=== PATIENT | male | born 1960 | race Caucasian/White ===

== ENCOUNTER 2018-08-03 06:23 | Inpatient (IN) | payer BC, OTHER ==
[2018-08-03] VITALS (27 sets, daily range): BP systolic 125–165; BP diastolic 61–113; PULSE 52–96; RESP 10–24; Ht 175.3 cm; Wt 90.0 kg
[~2018-08-03] VITALS: Ht 175.3 cm; Wt 90.0 kg
[~2018-08-03 06:23] MED LIST: CEFAZOLIN 2 GM/50 ML (PMX) 50 ML IVPB SCH; SOD CHLORIDE 0.9% 1,000 ML IV ONE
[2018-08-03] MEDS ORDERED: EMTR1TAB17 PO (07:48)
--- NOTE | 2018-08-03 08:39 | PREAC ---
Date/Time of Note Date/Time of Note DATE: 08/03/18 TIME: 08:37 Anesthesia Eval and Record Evaluation Time Pre-Procedure Interview DATE: 08/03/18 TIME: 08:37 Age 58 Sex male NPO: 8 hrs Preoperative diagnosis ventral hernia Planned procedure open component seperation with mesh and ventral hernia repair Past Medical History Past Medical History: Includes Infection(s): HIV Surgery & Anesthesia Issues No known issue Meds Anticoagulation: No Beta Monica within 24 hr: No Reason Beta Monica not given: Pt. not on B-Monica Reported Medications Emtricitab/Rilpiviri/Tenof Ala (Odefsey Tablet) 1 Each Tablet, 1 EACH PO, TAB 08/03/18 Current Medications Cefazolin Sodium/ Dextrose 50 ml @ 100 mls/hr PRE-OP IVPB ; Start 08/03/18 at 06:00; Stop 08/03/18 at 15:00 Sodium Chloride 1,000 ml @ 75 mls/hr [id number] ONCE IV ; Start 08/03/18 at 06:00; Stop 08/03/18 at 19:19 Meds reviewed: Yes Allergies Coded Allergies: No Known Allergy (Unverified , 08/03/18) Allergies Reviewed: Yes Labs/Studies Labs Reviewed: Reviewed by anesthesiologist test: N/A Studies: ECG (sr), CXR (nl) Pre-procedure Exam Last vitals Vital Signs Date Temp Pulse Resp B/P (MAP) Pulse Ox O2 O2 Flow FiO2 Time Delivery Rate 08/03/18 97.7 72 16 137/91 97 06:50 (106) Airway: Adequate mouth opening Mallampati: Mallampati II Teeth: Normal Lung: Normal Heart: Normal ASA Physical Status ASA physical status: 2 Emergency: None Planned Anesthetic General/MAC: ETT Nerve block: TAP (bilateral) Planned Pain Management Single shot nerve block, Parenteral pain med Pre-operative Attestations Prior to commencing anesthesia and surgery, the patient was re-evaluated, there was verification of: *The patient's identity *The results of appropriate recent lab work and preoperative vital signs *The above evaluation not changing prior to induction *Anesthetic plan, risk benefits, alternative and complications discussed with patient/family; questions answered; patient/family understands, accepts and wishes to proceed. AMBROSE BERGMAN MD Aug 03, 2018 08:39
[2018-08-03] MEDS ORDERED: POLYMYXIN/BACITRACIN 1L IRRIG ONE (08:40)
[2018-08-03] MEDS ORDERED: MIDAZOLAM 1 MG/ML 2 ML INJ ONE (08:42)
[2018-08-03] MEDS ORDERED: METOCLOPRAMIDE 10 MG INJ ONE (08:42)
[2018-08-03] MEDS ORDERED: ROPIVACAINE 0.5 % 30 ML VIAL ONE (08:42)
[2018-08-03] MEDS ORDERED: ONDANSETRON 4 MG INJ ONE (08:42)
[2018-08-03] MEDS ORDERED: CEFAZOLIN 1 GM INJ ONE (08:42)
[2018-08-03] MEDS ORDERED: PROPOFOL 0 ML ONE (08:42)
[2018-08-03] MEDS ORDERED: DIPHENHYDRAMINE 50 MG INJ IV PRN (09:00)
[2018-08-03] MEDS ORDERED: ONDANSETRON 4 MG INJ IV PRN ×2 (09:00→13:00)
[2018-08-03] MEDS ORDERED: OXYCODONE/ACETAMINOPHEN (5/325) TAB PO PRN ×2 (09:00)
[2018-08-03] MEDS ORDERED: HYDROmorphONE 1 MG/5 ML IV SYRINGE IV PRN ×3 (09:00)
[2018-08-03] MEDS ORDERED: MEPERIDINE 25 MG INJ IV PRN (09:00)
[2018-08-03] MEDS ORDERED: PROPOFOL 20 ML ONE ×2 (09:12→09:39)
[2018-08-03] MEDS ORDERED: NEOSTIGMINE 10 MG INJ ONE (09:13)
[2018-08-03] MEDS ORDERED: KETOROLAC 30 MG INJ ONE (09:13)
[2018-08-03] MEDS ORDERED: GLYCOPYRROLATE 0.4 MG INJ ONE (09:13)
[2018-08-03] MEDS ORDERED: HYDROmorphONE 2 MG/ML SYG ONE (09:15)
[2018-08-03] MEDS ORDERED: ROCURONIUM 50 MG INJ ONE (09:40)
[2018-08-03] MEDS ORDERED: BUPIVACAINE 0.25% (MPF) 30 ML INJ ONE (10:04)
[2018-08-03] MEDS ORDERED: METOPROLOL 5 MG INJ ONE (10:09)
[2018-08-03] MEDS ORDERED: SUGAMMADEX SODIUM 200 MG/2 ML VIAL IV ONE (10:18)
--- NOTE | 2018-08-03 10:40 | OPR ---
Date/Time of Note Date/Time of Note DATE: 08/03/18 TIME: 10:25 Operative Report Procedure Date: Aug 03, 2018 Preoperative Diagnosis incarcerated ventral hernia umbilical hernia and abdominal wall defect Postoperative Diagnosis same Operation/Procedure Performed 1. right rectus musculocutaneous flap cpt code 66028 2. left rectus musculocutaneous flap cpt code 87897 3. incarcerated midepigastric ventral hernia repair cpt code 40646 4. implantation of abdominal mesh 15 x 30 bard soft mesh cpt code 35112 5. incarcerated umbilical hernia repair cpt code 74117 6. localized adjacent tissue transfer with the use of skin flaps 78 sq cm defect of the trunk 7. open lysis of adhesions 1 hour 8. therapeutic injection of subcutaneous local anesthesia Surgeon see signature line Audiovisual Tech Sebastian Espinoza Anesthesia Type: general Estimated Blood Loss: 10 - 50 ml's Transfusion none Specimen none Grafts/Implants none Complications none Pt Condition Post Procedure: stable Indications This is a 58-year-old male with a very large abdominal wall defect and a complex ventral hernia umbilical hernia. He also has HIV. Risks alternatives benefits and percent were discussed with the patient. In particular due to his HIV and the complex nature of his abdominal wall reconstruction he was warned regarding increased risks of infection bleeding healing and potential complications in the future. Patient expressed understanding and requested the operation. Procedure Description Patient is taken to the OR and prepped and draped in usual sterile fashion. Surgical time was performed. IV antibiotics given. Generous midline incision was performed from the subxiphoid area all the way down to the periumbilical and infraumbilical region. Dissection with cautery was carried down to the decussation of the rectus sheath fascia. Here in the midepigastric region there were 2 incarcerated hernias that were encountered. This hernia defect was identified and the tissue was then manually reduced. This division of the rectus muscle was taken down all the way to the subxiphoid region all the way down to the periumbilical and infraumbilical region. There was laxity in this tissue and separation of the majority of the rectus sheath. Additionally an umbilical hernia was encountered. This was also opened and the hernia contents were reduced. The left rectus musculocutaneous flap was then developed. The retrorectus space was then developed by making a small incision into the rectus sheath. The posterior rectus sheath was then divided from the anterior rectus sheath with cautery taking care to preserve the vasculature to the rectus muscle. Extensive lysis of adhesions was performed taking all the adhesions from the anterior abdominal wall at the hernia point. The tissues were mobilized off of the posterior rectus sheath. This was taken all the way superiorly and inferiorly all the way down to the periumbilical infraumbilical region. After this space was developed and hemostasis was established the right rectus muscle flap was then developed. The retrorectus space was then developed by making a small incision into the rectus sheath. This was then carried superiorly inferiorly dividing the anterior posterior rectus sheath. The posterior rectus sheath was then closed and imbricated fashion with #1 loop PDS running from superior at the subxiphoid region down to the mid epigastric region. Another #1 loop PDS was taken from the infra umbilical region and taken down to the same midpoint region closing the posterior rectus sheath and tightening the area. Due to the large defect the mid epigastric hernia and umbilical hernia was then repaired by placing a synthetic mesh in the retrorectus space. Due to the size of the defect to Bard soft 15 x 15 cm mesh is more juxtaposed with multiple interrupted #1 Prolenes along the mesh greater coverage. This was secured in place by secure strap along the anterior aspect of the abdominal wall. The underlay mesh in the retrorectus space was secured with secure strap to the rectus muscle on both sides on the right and left. At the apex of the incision and the low point of the incision on #1 Prolene was used to secure reinforce the Bard soft mesh. After the underlay Bard soft mesh was secured in the retrorectus space hemostasis was verified. Good hemostasis was established. Anterior rectus sheath was then reapproximated with a #1 loop PDS from superior at the subxiphoid region all the way down to the mid epi gastric region. The anterior rectus sheath was also closed from the inferior aspect of the midline incision to the mid epigastric region and a running fashion with a #1 loop PDS. These 2 PDS were tied down. Due to large tissue defect localized adjacent to his transfer with these of skin flaps was performed. Multilayer closure with the skin flaps was performed. The skin flap was then reapproximated using interrupted skin evonne. Therapeutic subcutaneous local anesthesia was injected at the incision site. Dry dressings were applied. Gibson BRANTLEY Aug 03, 2018 10:40
[2018-08-03] MEDS ORDERED: FENTAnyl 50 MCG/ML VIAL IV PRN ×2 (11:00)
[2018-08-03] MEDS: SOD CHLORIDE 0.9% 1,000 ML IV SCH ×2 (11:28→18:45)
[2018-08-03] MEDS ORDERED: hydrALAzine 20 MG INJ IV PRN (11:30)
--- NOTE | 2018-08-03 11:57 | PAC ---
Date/Time of Note Date/Time of Note DATE: 08/03/18 TIME: 11:57 Post-Anesthesia Notes Post-Anesthesia Note Last documented vital signs Vital Signs Date Temp Pulse Resp B/P (MAP) Pulse Ox O2 O2 Flow FiO2 Time Delivery Rate 08/03/18 98.7 56 14 162/90 97 Nasal 10:55 (114) Cannula 08/03/18 2.0 10:51 08/03/18 98.4 10:27 Activity: WNL Respiratory function: WNL Cardiovascular function: WNL Mental status: Baseline Pain reasonably controlled: Yes Hydration appropriate: Yes Nausea/Vomiting absent: No AMBROSE BERGMAN MD Aug 03, 2018 11:57
--- NOTE | 2018-08-03 12:38 | HP ---
Date/Time of Note Date/Time of Note DATE: 08/03/18 TIME: 12:18 Assessment/Plan VTE Prophylaxis SCD applied (from Nsg): Yes Pharmacological prophylaxis: NA/contraindicated Pharm contraindication: surgical contra Lines/Catheters IV Catheter Type (from Nrsg): Peripheral IV Urinary Cath still in place: No Assessment/Plan Assessment/Plan -Incarcerated ventral hernia umbilical hernia and abdominal wall defect, status post open repair by Dr. Garcia on 08/03/2018. Continue IV fluids and postoperative antibiotic. Continue morphine for pain and Zofran as needed for nausea. -HIV, per patient his viral load is undetectable, patient takes Odefsey. Further recommendations based on clinical course. Plan of care discussed with Dr. Velasquez. Result Diagram: 08/03/18 1126 08/03/18 1126 Results 24hrs Laboratory Tests Test 08/03/18 11:26 White Blood Count 7.6 Red Blood Count 4.66 L Hemoglobin 14.9 Hematocrit 43.3 Mean Corpuscular Volume 92.9 Mean Corpuscular Hemoglobin 32.0 Mean Corpuscular Hemoglobin Concent 34.4 Red Cell Distribution Width 12.2 Platelet Count 126 L Mean Platelet Volume 10.2 Immature Granulocytes % 0.700 H Neutrophils % 73.8 Lymphocytes % 16.1 Monocytes % 8.3 Eosinophils % 0.7 Basophils % 0.4 Nucleated Red Blood Cells % 0.0 Immature Granulocytes # 0.050 H Neutrophils # 5.6 Lymphocytes # 1.2 Monocytes # 0.6 Eosinophils # 0.1 Basophils # 0.0 Nucleated Red Blood Cells # 0.0 Sodium Level 145 H Potassium Level 4.8 Chloride Level 108 Carbon Dioxide Level 25 Anion Gap 12 Blood Urea Nitrogen 18 Creatinine 0.89 Est Glomerular Filtrat Rate mL/min > 60 Glucose Level 114 Calcium Level 9.0 Total Bilirubin 0.6 Direct Bilirubin 0.00 Indirect Bilirubin 0.6 Aspartate Amino Transf (AST/SGOT) 25 Alanine Aminotransferase (ALT/SGPT) 34 Alkaline Phosphatase 65 Total Protein 7.0 Albumin 4.4 Globulin 2.60 Albumin/Globulin Ratio 1.69 HPI/ROS Admit Date/Time Admit Date/Time Aug 03, 2018 at 06:23 Hx of Present Illness The patient is 58-year-old male who was evaluated by Dr. Farah in general surgery consultation for very large abdominal wall defect and complex ventral and umbilical hernias. Patient has HIV takes Odefsey daily patient stated that his viral load is undetectable. Patient requested surgery for his hernia and was brought to the hospital today and underwent open hernia repair by Dr. Farah. Postoperative patient had an episode of high blood pressure, was given hydralazine with improvement in blood pressure. Patient denies any history of hypertension, however, he stated sometimes first reading of his blood pressure could be slightly elevated due to being anxious. Patient's complaints of abdominal pain and patient will be admitted for further evaluation and management. ROS 12 point review of system is negative except for what mentioned in HPI PMH/Family/Social Past Medical History Medical History: other (HIV) Medications Current Medications Cefazolin Sodium/ Dextrose 50 ml @ 100 mls/hr PRE-OP IVPB ; Start 08/03/18 at 06:00; Stop 08/03/18 at 15:00 Sodium Chloride 1,000 ml @ 75 mls/hr [id number] ONCE IV ; Start 08/03/18 at 06:00; Stop 08/03/18 at 19:19 Hydromorphone HCl (Dilaudid) 0.2 mg PACU PRN IV MILD PAIN 1-3; Start 08/03/18 at 09:00; Stop 08/03/18 at 17:00 Hydromorphone HCl (Dilaudid) 0.4 mg PACU PRN IV MOD PAIN 4-6; Start 08/03/18 at 09:00; Stop 08/03/18 at 17:00 Hydromorphone HCl (Dilaudid) 0.6 mg PACU PRN IV SEVERE PAIN 7-10 Last administe red on 08/03/18at 10:43; Admin Dose 0.6 MG; Start 08/03/18 at 09:00; Stop 08/03/18 at 17:00 Oxycodone/ Acetaminophen (Percocet (5/ 325)) 1 tab PACU ORDER PRN PO .PAIN 1-5; Start 08/03/18 at 09:00; Stop 08/03/18 at 17:00 Oxycodone/ Acetaminophen (Percocet (5/ 325)) 2 tab PACU ORDER PRN PO .PAIN 6-10; Start 08/03/18 at 09:00; Stop 08/03/18 at 17:00 Ondansetron HCl (Zofran Inj) 4 mg PACU ORDER PRN IV NAUSEA/VOMITING Last administered on 08/03/18 10:43; Admin Dose 4 MG; Start 08/03/18 at 09:00; Stop 08/03/18 at 17:00 Meperidine HCl (Demerol) 25 mg PACU ORDER PRN IV .RIGORS Last administered on 08/03/18 10:43; Admin Dose 25 MG; Start 08/03/18 at 09:00; Stop 08/03/18 at 17:00 Diphenhydramine HCl (Benadryl) 25 mg PACU ORDER PRN IV .PRURITUS; Start 08/03/18 at 09:00; Stop 08/03/18 at 17:00 Cefazolin Sodium/ Dextrose 50 ml @ 100 mls/hr Q8H IVPB ; Start 08/03/18 at 14:00; Stop 08/04/18 at 13:59 Oxycodone/ Acetaminophen (Percocet (5/ 325)) 1 tab Q6H PRN PO PAIN LEVEL 6-10; Start 08/03/18 at 10:30 Sodium Chloride 1,000 ml @ 100 mls/hr Q10H IV Last administered on 08/03/18 11:28; Admin Dose 100 MLS/HR; Start 08/03/18 at 10:13 Fentanyl (Sublimaze) 25 mcg PACU ORDER PRN IV MILD PAIN 1-3; Start 08/03/18 at 11:00; Stop 08/03/18 at 18:00 Fentanyl (Sublimaze) 50 mcg PACU ORDER PRN IV MOD PAIN 4-6 Last administered on 08/03/18 11:10; Admin Dose 50 MCG; Start 08/03/18 at 11:00; Stop 08/03/18 at 18:00 Hydralazine HCl (Apresoline) 5 mg PACU ORDER PRN IV HIGH BLOOD PRESSURE Last administered on 08/03/18 11:31; Admin Dose 5 MG; Start 08/03/18 at 11:30; Stop 08/03/18 at 18:00 Coded Allergies: No Known Allergy (Unverified , 08/03/18) Past Surgical History Past Surgical Hx: no surgical history Family History Significant Family History: cancer (Patient mother from cancer), diabetes (Patient's father) Social History Alcohol Use: none Smoking Status: Never smoker Drug Use: none Exam/Review of Systems Vital Signs Vitals Vital Signs Date Temp Pulse Resp B/P (MAP) Pulse Ox O2 O2 Flow FiO2 Time Delivery Rate 08/03/18 64 14 149/84 98 Nasal 11:47 (105) Cannula 08/03/18 2.0 10:51 08/03/18 98.4 10:27 Exam Constitutional: alert, oriented Head: normocephalic Neck: supple Respiratory: clear to auscultation Cardiovascular: regular rate and rhythm Gastrointestinal: soft, other (s/p surgery) Musculoskeletal: nl extremities to inspection Extremities: normal pulses Neurological: nl mental status Skin: nl BETTIE Sahu Aug 03, 2018 12:28
[2018-08-03] MEDS ORDERED: morphine 2 MG INJ IV PRN (13:00)
[2018-08-03] MEDS ORDERED: CEFAZOLIN 2 GM/50 ML (PMX) 50 ML IVPB SCH ×2 (14:00→17:00)
[2018-08-03] MEDS ORDERED: NALOXONE (0.4 MG/ML) INJ IV PRN ×2 (15:00)
[2018-08-03] MEDS ORDERED: HYDROmorphONE 0.2 MG/ML PCA IV SCH (15:00)
[2018-08-03] MEDS: HYDROmorphONE 0.2 MG/ML PCA IV SCH (15:32)
[2018-08-03] MEDS ORDERED: VITAMIN A & D 5 GM OINT PACKET TOP ONE (17:10)
[2018-08-03] MEDS: CEFAZOLIN 2 GM in SOD CHLORIDE 0.9% 50 ML IVPB SCH (18:47)
[2018-08-03] MEDS: LEVALBUTEROL (NEB) 0.63 MG/3 ML AMP HHN SCH (22:15)
[2018-08-04] VITALS (10 sets, daily range): BP systolic 151–177; BP diastolic 62–112; PULSE 81–110; RESP 16–20
[2018-08-04] MEDS: CEFAZOLIN 2 GM in SOD CHLORIDE 0.9% 50 ML IVPB SCH ×3 (01:41→18:07)
[2018-08-04] MEDS: HYDROmorphONE 0.2 MG/ML PCA IV SCH ×2 (03:24→16:48)
[2018-08-04] MEDS: SOD CHLORIDE 0.9% 1,000 ML IV SCH ×3 (04:08→20:20)
[2018-08-04] MEDS: hydrALAzine 20 MG INJ IV PRN ×3 (04:17→18:07)
[2018-08-04] MEDS: LEVALBUTEROL (NEB) 0.63 MG/3 ML AMP HHN SCH ×2 (07:38→15:46)
--- NOTE | 2018-08-04 13:05 | PN ---
Date/Time of Note Date/Time of Note DATE: 08/04/18 TIME: 13:04 Assessment/Plan VTE Prophylaxis Risk score (from Nsg)>0 risk: 8 SCD applied (from Nsg): Yes Pharmacological prophylaxis: other Lines/Catheters IV Catheter Type (from Nrsg): Peripheral IV Urinary Cath still in place: No Assessment/Plan Assessment/Plan s/p open component separation with mesh continue care and pain management Result Diagram: 08/04/18 0428 08/04/18 0428 Results 24hrs Laboratory Tests Test 08/04/18 04:28 08/04/18 08:15 White Blood Count 7.4 Red Blood Count 4.36 L Hemoglobin 13.7 L Hematocrit 40.4 L Mean Corpuscular Volume 92.7 Mean Corpuscular Hemoglobin 31.4 Mean Corpuscular Hemoglobin Concent 33.9 Red Cell Distribution Width 12.2 Platelet Count 110 L Mean Platelet Volume 10.7 H Immature Granulocytes % 0.400 Neutrophils % 75.1 Lymphocytes % 13.4 L Monocytes % 10.4 Eosinophils % 0.4 Basophils % 0.3 Nucleated Red Blood Cells % 0.0 Immature Granulocytes # 0.030 Neutrophils # 5.6 Lymphocytes # 1.0 Monocytes # 0.8 Eosinophils # 0.0 Basophils # 0.0 Nucleated Red Blood Cells # 0.0 Sodium Level 141 Potassium Level 4.2 Chloride Level 100 Carbon Dioxide Level 28 Anion Gap 13 Blood Urea Nitrogen 15 Creatinine 0.91 Est Glomerular Filtrat Rate mL/min > 60 Glucose Level 107 Calcium Level 9.0 Total Bilirubin 1.3 Direct Bilirubin 0.00 Indirect Bilirubin 1.3 H Aspartate Amino Transf (AST/SGOT) 29 Alanine Aminotransferase (ALT/SGPT) 27 Alkaline Phosphatase 54 Total Protein 6.7 Albumin 4.2 Globulin 2.50 Albumin/Globulin Ratio 1.68 Lab Scanned Report REFERENCE LAB Subjective 24 Hr Interval Summary Free Text/Dictation expected postop op pain Exam/Review of Systems Exam Vitals Vital Signs Date Temp Pulse Resp B/P (MAP) Pulse Ox O2 O2 Flow FiO2 Time Delivery Rate 08/04/18 101 16 173/103 93 Nasal 10:39 (126) Cannula 08/04/18 2.0 08:15 08/04/18 21 07:38 08/04/18 98.2 07:19 Intake and Output 08/03/18 08/03/18 08/04/18 1515:00 23:00 07:00 IntakeIntake Total 1120 ml 1870 ml 1870 ml OutputOutput Total 2 ml 600 ml 1380 ml BalanceBalance 1118 ml 1270 ml 490 ml Exam c/d/i Results Results 24hrs Laboratory Tests Test 08/04/18 04:28 08/04/18 08:15 White Blood Count 7.4 Red Blood Count 4.36 L Hemoglobin 13.7 L Hematocrit 40.4 L Mean Corpuscular Volume 92.7 Mean Corpuscular Hemoglobin 31.4 Mean Corpuscular Hemoglobin Concent 33.9 Red Cell Distribution Width 12.2 Platelet Count 110 L Mean Platelet Volume 10.7 H Immature Granulocytes % 0.400 Neutrophils % 75.1 Lymphocytes % 13.4 L Monocytes % 10.4 Eosinophils % 0.4 Basophils % 0.3 Nucleated Red Blood Cells % 0.0 Immature Granulocytes # 0.030 Neutrophils # 5.6 Lymphocytes # 1.0 Monocytes # 0.8 Eosinophils # 0.0 Basophils # 0.0 Nucleated Red Blood Cells # 0.0 Sodium Level 141 Potassium Level 4.2 Chloride Level 100 Carbon Dioxide Level 28 Anion Gap 13 Blood Urea Nitrogen 15 Creatinine 0.91 Est Glomerular Filtrat Rate mL/min > 60 Glucose Level 107 Calcium Level 9.0 Total Bilirubin 1.3 Direct Bilirubin 0.00 Indirect Bilirubin 1.3 H Aspartate Amino Transf (AST/SGOT) 29 Alanine Aminotransferase (ALT/SGPT) 27 Alkaline Phosphatase 54 Total Protein 6.7 Albumin 4.2 Globulin 2.50 Albumin/Globulin Ratio 1.68 Lab Scanned Report REFERENCE LAB Medications Medication Current Medications Oxycodone/ Acetaminophen (Percocet (5/ 325)) 1 tab Q6H PRN PO PAIN LEVEL 6-10; Start 08/03/18 at 10:30 Sodium Chloride 1,000 ml @ 100 mls/hr Q10H IV Last administered on 08/04/18at 04:08; Admin Dose 100 MLS/HR; Start 08/03/18 at 10:13 Hydralazine HCl (Apresoline) 10 mg Q4H PRN IV SBP>170 Last administered on 08/04/18at 10:39; Admin Dose 10 MG; Start 08/03/18 at 13:00 Ondansetron HCl (Zofran Inj) 4 mg Q6H PRN IV NAUSEA/VOMITING; Start 08/03/18 at 13:00 Morphine Sulfate (morphine) 2 mg Q4H PRN IV .SEVERE PAIN 7-10 Last administered on 08/03/18 13:23; Admin Dose 2 MG; Start 08/03/18 at 13:00 Docusate Sodium (Colace) 100 mg Q12H PRN PO .CONSTIPATION; Start 08/03/18 at 13:00 Bisacodyl (Dulcolax) 5 mg DAILY PRN PO .CONSTIPATION; Start 08/03/18 at 13:00 Naloxone HCl (Narcan) 0.2 mg PRN PRN IV RR < 8; Start 08/03/18 at 15:00 Hydromorphone HCl (Dilaudid TECHNICAL SUPPORT DIRECTOR) Q4PCA IV Last administered on 08/04/18at 03:24; Admin Dose 6 MG; Start 08/03/18 at 15:00 Levalbuterol (Xopenex Neb) 0.63 mg Q8H RESP THERAPY HHN Last administered on 08/04/18at 07:38; Admin Dose 0.63 MG; Start 08/03/18 at 20:00; Stop 08/06/18 at 08:00 Cefazolin Sodium 2 gm/Sodium Chloride 50 ml @ 100 mls/hr Q8H IVPB Last administered on 08/04/18at 10:32; Admin Dose 100 MLS/HR; Start 08/03/18 at 18:00 Gibson BRANTLEY Aug 04, 2018 13:05
--- NOTE | 2018-08-04 17:21 | PN ---
Date/Time of Note Date/Time of Note DATE: 08/04/18 TIME: 17:17 Assessment/Plan VTE Prophylaxis Risk score (from Ns)>0 risk: 8 SCD applied (from Ns): Yes Pharmacological prophylaxis: NA/contraindicated Pharm contraindication: surgical contra Lines/Catheters IV Catheter Type (from Nrsg): Peripheral IV Urinary Cath still in place: No Assessment/Plan Hospital Course Patient still complains of significant amount of pain, continues on AGENCY SERVICE COORDINATOR Dilaudid, hypertensive, continue hydralazine as needed, started on Norvasc. Assessment/Plan -Incarcerated ventral hernia umbilical hernia and abdominal wall defect, status post open repair by Dr. Farah on 08/03/2018. Continue IV fluids and postoperative antibiotic. Continue morphine for pain and Zofran as needed for nausea. -Hypertension, start Norvasc, continue hydralazine as needed. -HIV, continue Odefsey. Further recommendations based on clinical course. Plan of care discussed with Dr. Velasquez. Result Diagram: 08/04/18 0428 08/04/18 0428 Results 24hrs Laboratory Tests Test 08/04/18 04:28 08/04/18 08:15 White Blood Count 7.4 Red Blood Count 4.36 L Hemoglobin 13.7 L Hematocrit 40.4 L Mean Corpuscular Volume 92.7 Mean Corpuscular Hemoglobin 31.4 Mean Corpuscular Hemoglobin Concent 33.9 Red Cell Distribution Width 12.2 Platelet Count 110 L Mean Platelet Volume 10.7 H Immature Granulocytes % 0.400 Neutrophils % 75.1 Lymphocytes % 13.4 L Monocytes % 10.4 Eosinophils % 0.4 Basophils % 0.3 Nucleated Red Blood Cells % 0.0 Immature Granulocytes # 0.030 Neutrophils # 5.6 Lymphocytes # 1.0 Monocytes # 0.8 Eosinophils # 0.0 Basophils # 0.0 Nucleated Red Blood Cells # 0.0 Sodium Level 141 Potassium Level 4.2 Chloride Level 100 Carbon Dioxide Level 28 Anion Gap 13 Blood Urea Nitrogen 15 Creatinine 0.91 Est Glomerular Filtrat Rate mL/min > 60 Glucose Level 107 Calcium Level 9.0 Total Bilirubin 1.3 Direct Bilirubin 0.00 Indirect Bilirubin 1.3 H Aspartate Amino Transf (AST/SGOT) 29 Alanine Aminotransferase (ALT/SGPT) 27 Alkaline Phosphatase 54 Total Protein 6.7 Albumin 4.2 Globulin 2.50 Albumin/Globulin Ratio 1.68 Lab Scanned Report REFERENCE LAB Exam/Review of Systems Exam Vitals Vital Signs Date Temp Pulse Resp B/P (MAP) Pulse Ox O2 O2 Flow FiO2 Time Delivery Rate 08/04/18 95 20 95 21 15:46 08/04/18 97.2 161/78 14:16 (105) 08/04/18 Nasal 10:39 Cannula 08/04/18 2.0 08:15 Intake and Output 08/03/18 08/03/18 08/04/18 1515:00 23:00 07:00 IntakeIntake Total 1120 ml 1870 ml 1870 ml OutputOutput Total 2 ml 600 ml 1380 ml BalanceBalance 1118 ml 1270 ml 490 ml Exam Constitutional: alert, oriented Respiratory: clear to auscultation Cardiovascular: nl pulse Gastrointestinal: soft, other (s/p surgery) Musculoskeletal: nl extremities to inspection Extremities: normal pulses Neurological: nl mental status Results Results 24hrs Laboratory Tests Test 08/04/18 04:28 08/04/18 08:15 White Blood Count 7.4 Red Blood Count 4.36 L Hemoglobin 13.7 L Hematocrit 40.4 L Mean Corpuscular Volume 92.7 Mean Corpuscular Hemoglobin 31.4 Mean Corpuscular Hemoglobin Concent 33.9 Red Cell Distribution Width 12.2 Platelet Count 110 L Mean Platelet Volume 10.7 H Immature Granulocytes % 0.400 Neutrophils % 75.1 Lymphocytes % 13.4 L Monocytes % 10.4 Eosinophils % 0.4 Basophils % 0.3 Nucleated Red Blood Cells % 0.0 Immature Granulocytes # 0.030 Neutrophils # 5.6 Lymphocytes # 1.0 Monocytes # 0.8 Eosinophils # 0.0 Basophils # 0.0 Nucleated Red Blood Cells # 0.0 Sodium Level 141 Potassium Level 4.2 Chloride Level 100 Carbon Dioxide Level 28 Anion Gap 13 Blood Urea Nitrogen 15 Creatinine 0.91 Est Glomerular Filtrat Rate mL/min > 60 Glucose Level 107 Calcium Level 9.0 Total Bilirubin 1.3 Direct Bilirubin 0.00 Indirect Bilirubin 1.3 H Aspartate Amino Transf (AST/SGOT) 29 Alanine Aminotransferase (ALT/SGPT) 27 Alkaline Phosphatase 54 Total Protein 6.7 Albumin 4.2 Globulin 2.50 Albumin/Globulin Ratio 1.68 Lab Scanned Report REFERENCE LAB Medications Medication Current Medications Oxycodone/ Acetaminophen (Percocet (5/ 325)) 1 tab Q6H PRN PO PAIN LEVEL 6-10; Start 08/03/18 at 10:30 Sodium Chloride 1,000 ml @ 100 mls/hr Q10H IV Last administered on 08/04/18 04:08; Admin Dose 100 MLS/HR; Start 08/03/18 at 10:13 Hydralazine HCl (Apresoline) 10 mg Q4H PRN IV SBP>170 Last administered on 08/04/18 10:39; Admin Dose 10 MG; Start 08/03/18 at 13:00 Ondansetron HCl (Zofran Inj) 4 mg Q6H PRN IV NAUSEA/VOMITING; Start 08/03/18 at 13:00 Morphine Sulfate (morphine) 2 mg Q4H PRN IV .SEVERE PAIN 7-10 Last administered on 08/03/18 13:23; Admin Dose 2 MG; Start 08/03/18 at 13:00 Docusate Sodium (Colace) 100 mg Q12H PRN PO .CONSTIPATION; Start 08/03/18 at 13:00 Bisacodyl (Dulcolax) 5 mg DAILY PRN PO .CONSTIPATION; Start 08/03/18 at 13:00 Naloxone HCl (Narcan) 0.2 mg PRN PRN IV RR < 8; Start 08/03/18 at 15:00 Hydromorphone HCl (Dilaudid AGENCY SERVICE COORDINATOR) Q4PCA IV Last administered on 08/04/18 16:48; Admin Dose 6 MG; Start 08/03/18 at 15:00 Levalbuterol (Xopenex Neb) 0.63 mg Q8H RESP THERAPY HHN Last administered on 08/04/18 15:46; Admin Dose 0.63 MG; Start 08/03/18 at 20:00; Stop 08/06/18 at 08:00 Cefazolin Sodium 2 gm/Sodium Chloride 50 ml @ 100 mls/hr Q8H IVPB Last administered on 08/04/18 10:32; Admin Dose 100 MLS/HR; Start 08/03/18 at 18:00 Patient Own Medication 1 ea DAILY PO ; Start 08/04/18 at 17:30 BETTIE RUVALCABA Aug 04, 2018 17:21
[2018-08-04] MEDS: AMLODIPINE 5 MG TAB PO SCH (18:04)
[2018-08-04] MEDS: RILPIVIRINE PO SCH (18:06)
[2018-08-04] MEDS: TENOFOVIR PO SCH (18:06)
[2018-08-04] MEDS: ODEFSEY PO SCH (18:06)
[2018-08-05] MEDS: LEVALBUTEROL (NEB) 0.63 MG/3 ML AMP HHN SCH ×4 (01:32→23:47)
[2018-08-05 01:53] VITALS: BP 166/83; PULSE 101; RESP 16
[2018-08-05] MEDS: CEFAZOLIN 2 GM in SOD CHLORIDE 0.9% 50 ML IVPB SCH ×3 (02:28→18:05)
[2018-08-05 06:01] VITALS: BP 138/94; PULSE 94; RESP 18
[2018-08-05] MEDS: SOD CHLORIDE 0.9% 1,000 ML IV SCH ×2 (07:22→18:05)
[2018-08-05 08:25] VITALS: BP 158/92; PULSE 94; RESP 18
[2018-08-05] MEDS: DOCUSATE SODIUM 100 MG CAP PO PRN (09:30)
[2018-08-05] MEDS: BISACODYL (EC) 5 MG TAB PO PRN (09:31)
[2018-08-05] MEDS: AMLODIPINE 5 MG TAB PO SCH (09:31)
[2018-08-05] MEDS: TENOFOVIR PO SCH (09:32)
[2018-08-05] MEDS: ODEFSEY PO SCH (09:32)
[2018-08-05] MEDS: RILPIVIRINE PO SCH (09:32)
[2018-08-05] MEDS: HYDROmorphONE 0.2 MG/ML PCA IV SCH (13:03)
[2018-08-05 14:02] VITALS: BP 145/87; PULSE 104; RESP 18
--- NOTE | 2018-08-05 14:07 | PN ---
Date/Time of Note Date/Time of Note DATE: 08/05/18 TIME: 14:03 Assessment/Plan VTE Prophylaxis Risk score (from Nsg)>0 risk: 6 SCD applied (from Nsg): Yes Lines/Catheters IV Catheter Type (from Nrsg): Peripheral IV Urinary Cath still in place: No Assessment/Plan Assessment/Plan -Incarcerated ventral hernia umbilical hernia and abdominal wall defect, status post open repair by Dr. Farah on 08/03/2018. Continue IV fluids and postoperative antibiotic. Continue morphine for pain and Zofran as needed for nausea. -Hypertension, start Norvasc, continue hydralazine as needed. -HIV, continue Odefsey. Further recommendations based on clinical course. Plan of care discussed with Dr. Velasquez. Result Diagram: 08/04/18 0428 08/05/18 0457 Results 24hrs Laboratory Tests Test 08/05/18 04:57 Sodium Level 141 Potassium Level 3.8 Chloride Level 100 Carbon Dioxide Level 29 Anion Gap 12 Blood Urea Nitrogen 9 Creatinine 0.72 Est Glomerular Filtrat Rate mL/min > 60 Glucose Level 123 Calcium Level 9.6 Total Bilirubin 1.7 H Direct Bilirubin 0.00 Indirect Bilirubin 1.7 H Aspartate Amino Transf (AST/SGOT) 46 # Alanine Aminotransferase (ALT/SGPT) 27 Alkaline Phosphatase 61 Total Protein 6.8 Albumin 4.2 Globulin 2.60 Albumin/Globulin Ratio 1.61 Subjective 24 Hr Interval Summary Free Text/Dictation - 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; 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 Exam/Review of Systems Exam Vitals Vital Signs Date Temp Pulse Resp B/P (MAP) Pulse Ox O2 O2 Flow FiO2 Time Delivery Rate 08/05/18 18 13:00 08/05/18 98.3 94 158/92 96 08:25 (114) 08/05/18 21 07:35 08/04/18 Nasal 2.0 20:10 Cannula Intake and Output 08/04/18 08/04/18 08/05/18 1515:00 23:00 07:00 IntakeIntake Total 770 ml 950 ml 1600 ml OutputOutput Total 600 ml 500 ml 1900 ml BalanceBalance 170 ml 450 ml -300 ml Constitutional: alert, well developed Psych: nl mood/affect Eyes: EOMI, nl lids, nl sclera ENMT: nl external ears & nose Neck: non-tender Respiratory: clear to auscultation Cardiovascular: nl pulses Gastrointestinal: soft, other (surgcal abdomen-DDI) Musculoskeletal: nl extremities to inspection Neurological: nl mental status Lymph: nontender Results Results 24hrs Laboratory Tests Test 08/05/18 04:57 Sodium Level 141 Potassium Level 3.8 Chloride Level 100 Carbon Dioxide Level 29 Anion Gap 12 Blood Urea Nitrogen 9 Creatinine 0.72 Est Glomerular Filtrat Rate mL/min > 60 Glucose Level 123 Calcium Level 9.6 Total Bilirubin 1.7 H Direct Bilirubin 0.00 Indirect Bilirubin 1.7 H Aspartate Amino Transf (AST/SGOT) 46 # Alanine Aminotransferase (ALT/SGPT) 27 Alkaline Phosphatase 61 Total Protein 6.8 Albumin 4.2 Globulin 2.60 Albumin/Globulin Ratio 1.61 Medications Medication Current Medications Oxycodone/ Acetaminophen (Percocet (5/ 325)) 1 tab Q6H PRN PO PAIN LEVEL 6-10; Start 08/03/18 at 10:30 Sodium Chloride 1,000 ml @ 100 mls/hr Q10H IV Last administered on 08/05/18 07:22; Admin Dose 100 MLS/HR; Start 08/03/18 at 10:13 Hydralazine HCl (Apresoline) 10 mg Q4H PRN IV SBP>170 Last administered on 08/04/18 18:07; Admin Dose 10 MG; Start 08/03/18 at 13:00 Ondansetron HCl (Zofran Inj) 4 mg Q6H PRN IV NAUSEA/VOMITING; Start 08/03/18 at 13:00 Morphine Sulfate (morphine) 2 mg Q4H PRN IV .SEVERE PAIN 7-10 Last administered on 08/03/18at 13:23; Admin Dose 2 MG; Start 08/03/18 at 13:00 Docusate Sodium (Colace) 100 mg Q12H PRN PO .CONSTIPATION Last administered on 08/05/18 09:30; Admin Dose 100 MG; Start 08/03/18 at 13:00 Bisacodyl (Dulcolax) 5 mg DAILY PRN PO .CONSTIPATION Last administered on 08/05/18 09:31; Admin Dose 5 MG; Start 08/03/18 at 13:00 Naloxone HCl (Narcan) 0.2 mg PRN PRN IV RR < 8; Start 08/03/18 at 15:00 Hydromorphone HCl (Dilaudid ELEVATOR SERVICE TECHNICIAN) Q4PCA IV Last administered on 08/05/18 13:03; Admin Dose 6 MG; Start 08/03/18 at 15:00 Levalbuterol (Xopenex Neb) 0.63 mg Q8H RESP THERAPY HHN Last administered on 08/05/18 07:35; Admin Dose 0.63 MG; Start 08/03/18 at 20:00; Stop 08/06/18 at 08:00 Cefazolin Sodium 2 gm/Sodium Chloride 50 ml @ 100 mls/hr Q8H IVPB Last administered on 08/05/18 09:31; Admin Dose 100 MLS/HR; Start 08/03/18 at 18:00 Patient Own Medication 1 ea DAILY PO Last administered on 08/05/18 09:32; Admin Dose 1 EA; Start 08/04/18 at 17:30 Amlodipine Besylate (Norvasc) 5 mg DAILY PO Last administered on 08/05/18 09:31; Admin Dose 5 MG; Start 08/04/18 at 17:30 YARITZA CARR Aug 05, 2018 14:07
[2018-08-05 19:30] VITALS: BP 175/103; PULSE 105; RESP 20
[2018-08-05] MEDS: hydrALAzine 20 MG INJ IV PRN (20:14)
[2018-08-05 21:10] VITALS: BP 139/89
[2018-08-06] MEDS: CEFAZOLIN 2 GM in SOD CHLORIDE 0.9% 50 ML IVPB SCH ×3 (01:53→18:12)
[2018-08-06 02:15] VITALS: BP 133/83; PULSE 86; RESP 20
[2018-08-06] MEDS: BISACODYL (EC) 5 MG TAB PO PRN (03:42)
[2018-08-06] MEDS: DOCUSATE SODIUM 100 MG CAP PO PRN (03:42)
[2018-08-06] MEDS: HYDROmorphONE 0.2 MG/ML PCA IV SCH ×2 (04:15→18:41)
[2018-08-06] MEDS: SOD CHLORIDE 0.9% 1,000 ML IV SCH ×2 (05:35→18:12)
[2018-08-06 07:37] VITALS: BP 145/85; PULSE 84; RESP 18
[2018-08-06] MEDS: LEVALBUTEROL (NEB) 0.63 MG/3 ML AMP HHN SCH (08:20)
[2018-08-06] MEDS: TENOFOVIR PO SCH (09:14)
[2018-08-06] MEDS: AMLODIPINE 5 MG TAB PO SCH (09:14)
[2018-08-06] MEDS: ODEFSEY PO SCH (09:14)
[2018-08-06] MEDS: RILPIVIRINE PO SCH (09:14)
--- NOTE | 2018-08-06 10:28 | PN ---
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 Result Diagram: 08/04/18 0428 08/05/18 0457 Subjective 24 Hr Interval Summary Free Text/Dictation patient with still significant pain Exam/Review of Systems Exam Vitals Vital Signs Date Temp Pulse Resp B/P (MAP) Pulse Ox O2 O2 Flow FiO2 Time Delivery Rate 08/06/18 09:00 08/06/18 83 97 21 08:23 08/06/18 97.9 145/85 Room Air 07:37 (105) 08/04/18 2.0 20:10 Intake and Output 08/05/18 08/05/18 08/06/18 1515:00 23:00 07:00 IntakeIntake Total 880 ml 1850 ml 1450 ml OutputOutput Total 1200 ml 850 ml 1200 ml BalanceBalance -320 ml 1000 ml 250 ml Exam c/d/i Medications Medication Current Medications Oxycodone/ Acetaminophen (Percocet (5/ 325)) 1 tab Q6H PRN PO PAIN LEVEL 6-10; Start 08/03/18 at 10:30 Sodium Chloride 1,000 ml @ 100 mls/hr Q10H IV Last administered on 08/06/18at 05:35; Admin Dose 100 MLS/HR; Start 08/03/18 at 10:13 Hydralazine HCl (Apresoline) 10 mg Q4H PRN IV SBP>170 Last administered on 08/05/18at 20:14; Admin Dose 10 MG; Start 08/03/18 at 13:00 Ondansetron HCl (Zofran Inj) 4 mg Q6H PRN IV NAUSEA/VOMITING; Start 08/03/18 at 13:00 Morphine Sulfate (morphine) 2 mg Q4H PRN IV .SEVERE PAIN 7-10 Last administered on 08/03/18at 13:23; Admin Dose 2 MG; Start 08/03/18 at 13:00 Docusate Sodium (Colace) 100 mg Q12H PRN PO .CONSTIPATION Last administered on 08/06/18 03:42; Admin Dose 100 MG; Start 08/03/18 at 13:00 Bisacodyl (Dulcolax) 5 mg DAILY PRN PO .CONSTIPATION Last administered on 08/06/18 03:42; Admin Dose 5 MG; Start 08/03/18 at 13:00 Naloxone HCl (Narcan) 0.2 mg PRN PRN IV RR < 8; Start 08/03/18 at 15:00 Hydromorphone HCl (Dilaudid JOINER HELPER) Q4PCA IV Last administered on 08/06/18 04:15; Admin Dose 6 MG; Start 08/03/18 at 15:00 Cefazolin Sodium 2 gm/Sodium Chloride 50 ml @ 100 mls/hr Q8H IVPB Last administered on 08/06/18 10:11; Admin Dose 100 MLS/HR; Start 08/03/18 at 18:00 Patient Own Medication 1 ea DAILY PO Last administered on 08/06/18 09:14; Admin Dose 1 EA; Start 08/04/18 at 17:30 Amlodipine Besylate (Norvasc) 5 mg DAILY PO Last administered on 08/06/18 09:14; Admin Dose 5 MG; Start 08/04/18 at 17:30 Gibson BRANTLEY Aug 06, 2018 10:28
--- NOTE | 2018-08-06 12:24 | PN ---
Date/Time of Note Date/Time of Note DATE: 08/06/18 TIME: 12:22 Assessment/Plan VTE Prophylaxis Risk score (from Nsg)>0 risk: 7 SCD applied (from Nsg): Yes Lines/Catheters IV Catheter Type (from Nrsg): Peripheral IV Urinary Cath still in place: No Assessment/Plan Assessment/Plan -Abdominal distension/ apin -no bm/passing gas - stat KUB- FU -Incarcerated ventral hernia umbilical hernia and abdominal wall defect, status post open repair by Dr. Farah on 08/03/2018. -Continue IV fluids and postoperative antibiotic. -Continue morphine for pain and Zofran as needed for nausea. -Hypertension, start Norvasc, continue hydralazine as needed. -HIV, continue Odefsey. Further recommendations based on clinical course. Plan of care discussed with Dr. Velasquez. Result Diagram: 08/04/18 0428 08/05/18 0457 Subjective 24 Hr Interval Summary Free Text/Dictation C/O Abdominal distention Exam/Review of Systems Exam Vitals Vital Signs Date Temp Pulse Resp B/P (MAP) Pulse Ox O2 O2 Flow FiO2 Time Delivery Rate 08/06/18 18 09:00 08/06/18 83 97 21 08:23 08/06/18 97.9 145/85 Room Air 07:37 (105) 08/04/18 2.0 20:10 Intake and Output 08/05/18 08/05/18 08/06/18 1515:00 23:00 07:00 IntakeIntake Total 880 ml 1850 ml 1450 ml OutputOutput Total 1200 ml 850 ml 1200 ml BalanceBalance -320 ml 1000 ml 250 ml Constitutional: alert, oriented, well developed Psych: nl mood/affect Head: normocephalic Eyes: EOMI, nl lids, nl sclera ENMT: nl external ears & nose Neck: non-tender Respiratory: clear to auscultation Cardiovascular: nl pulses Gastrointestinal: soft, distended Musculoskeletal: nl extremities to inspection Extremities: normal pulses Neurological: nl mental status, nl speech Skin: nl turgor Lymph: nontender Medications Medication Current Medications Oxycodone/ Acetaminophen (Percocet (5/ 325)) 1 tab Q6H PRN PO PAIN LEVEL 6-10; Start 08/03/18 at 10:30 Sodium Chloride 1,000 ml @ 100 mls/hr Q10H IV Last administered on 08/06/18 05:35; Admin Dose 100 MLS/HR; Start 08/03/18 at 10:13 Hydralazine HCl (Apresoline) 10 mg Q4H PRN IV SBP>170 Last administered on 08/05/18 20:14; Admin Dose 10 MG; Start 08/03/18 at 13:00 Ondansetron HCl (Zofran Inj) 4 mg Q6H PRN IV NAUSEA/VOMITING; Start 08/03/18 at 13:00 Morphine Sulfate (morphine) 2 mg Q4H PRN IV .SEVERE PAIN 7-10 Last administered on 08/03/18 13:23; Admin Dose 2 MG; Start 08/03/18 at 13:00 Docusate Sodium (Colace) 100 mg Q12H PRN PO .CONSTIPATION Last administered on 08/06/18 03:42; Admin Dose 100 MG; Start 08/03/18 at 13:00 Bisacodyl (Dulcolax) 5 mg DAILY PRN PO .CONSTIPATION Last administered on 08/06/18 03:42; Admin Dose 5 MG; Start 08/03/18 at 13:00 Naloxone HCl (Narcan) 0.2 mg PRN PRN IV RR < 8; Start 08/03/18 at 15:00 Hydromorphone HCl (Dilaudid PROJECTION PRINTER) Q4PCA IV Last administered on 08/06/18 04:15; Admin Dose 6 MG; Start 08/03/18 at 15:00 Cefazolin Sodium 2 gm/Sodium Chloride 50 ml @ 100 mls/hr Q8H IVPB Last administered on 08/06/18 10:11; Admin Dose 100 MLS/HR; Start 08/03/18 at 18:00 Patient Own Medication 1 ea DAILY PO Last administered on 08/06/18 09:14; Admin Dose 1 EA; Start 08/04/18 at 17:30 Amlodipine Besylate (Norvasc) 5 mg DAILY PO Last administered on 08/06/18 09:14; Admin Dose 5 MG; Start 08/04/18 at 17:30 YARITZA CARR Aug 06, 2018 12:24
[2018-08-06 13:57] VITALS: BP 134/82; PULSE 94
[2018-08-07 01:39] VITALS: BP 140/97; PULSE 94; RESP 19
[2018-08-07] MEDS: CEFAZOLIN 2 GM in SOD CHLORIDE 0.9% 50 ML IVPB SCH ×3 (01:44→17:59)
[2018-08-07] MEDS: SOD CHLORIDE 0.9% 1,000 ML IV SCH ×3 (04:13→18:00)
[2018-08-07 07:49] VITALS: BP 157/100; PULSE 87; RESP 18
[2018-08-07] MEDS: RILPIVIRINE PO SCH (09:06)
[2018-08-07] MEDS: TENOFOVIR PO SCH (09:06)
[2018-08-07] MEDS: ODEFSEY PO SCH (09:06)
[2018-08-07] MEDS: AMLODIPINE 5 MG TAB PO SCH (09:06)
--- NOTE | 2018-08-07 10:37 | PN ---
Date/Time of Note Date/Time of Note DATE: 08/07/18 TIME: 10:32 Assessment/Plan VTE Prophylaxis Risk score (from Nsg)>0 risk: 7 SCD applied (from Nsg): Yes Lines/Catheters IV Catheter Type (from Nrsg): Peripheral IV Urinary Cath still in place: No Assessment/Plan Assessment/Plan -Abdominal distension/ apin -no bm/passing gas - stat KUB- FU -Incarcerated ventral hernia umbilical hernia and abdominal wall defect, status post open repair by Dr. Farah on 08/03/2018. -Continue IV fluids and postoperative antibiotic. -Continue morphine for pain and Zofran as needed for nausea. -Hypertension, start Norvasc, continue hydralazine as needed. -HIV, continue Odefsey. Further recommendations based on clinical course. Plan of care discussed with Dr. Velasquez. Result Diagram: 08/04/18 0428 08/05/18 0457 Subjective 24 Hr Interval Summary Free Text/Dictation remains on SLITTER SERVICE AND SETTER SP KUB- No obstruction showed Constitutional: requiring IVF Respiratory: no complaints Cardiovascular: no complaints Genitourinary: no complaints Musculoskeletal: no complaints Skin: no complaints Exam/Review of Systems Exam Vitals Vital Signs Date Temp Pulse Resp B/P (MAP) Pulse Ox O2 O2 Flow FiO2 Time Delivery Rate 08/07/18 98.4 87 18 157/100 100 Room Air 07:49 (119) 08/06/18 21 08:23 08/04/18 2.0 20:10 Intake and Output 08/06/18 08/06/18 08/07/18 1515:00 23:00 07:00 IntakeIntake Total 490 ml 1350 ml 1450 ml OutputOutput Total 1200 ml 300 ml 1650 ml BalanceBalance -710 ml 1050 ml -200 ml Constitutional: alert, oriented, well developed Psych: nl mood/affect Eyes: EOMI, nl lids ENMT: nl external ears & nose Neck: non-tender Respiratory: clear to auscultation Cardiovascular: nl pulses, other Gastrointestinal: soft Musculoskeletal: nl extremities to inspection Extremities: normal pulses Neurological: nl mental status, nl speech Lymph: nontender Medications Medication Current Medications Oxycodone/ Acetaminophen (Percocet (5/ 325)) 1 tab Q6H PRN PO PAIN LEVEL 6-10; Start 08/03/18 at 10:30 Sodium Chloride 1,000 ml @ 100 mls/hr Q10H IV Last administered on 08/07/18 06:26; Admin Dose 100 MLS/HR; Start 08/03/18 at 10:13 Hydralazine HCl (Apresoline) 10 mg Q4H PRN IV SBP>170 Last administered on 08/05/18 20:14; Admin Dose 10 MG; Start 08/03/18 at 13:00 Ondansetron HCl (Zofran Inj) 4 mg Q6H PRN IV NAUSEA/VOMITING; Start 08/03/18 at 13:00 Morphine Sulfate (morphine) 2 mg Q4H PRN IV .SEVERE PAIN 7-10 Last administered on 08/03/18 13:23; Admin Dose 2 MG; Start 08/03/18 at 13:00 Docusate Sodium (Colace) 100 mg Q12H PRN PO .CONSTIPATION Last administered on 08/06/18 03:42; Admin Dose 100 MG; Start 08/03/18 at 13:00 Bisacodyl (Dulcolax) 5 mg DAILY PRN PO .CONSTIPATION Last administered on 07/18 03:42; Admin Dose 5 MG; Start 08/03/18 at 13:00 Naloxone HCl (Narcan) 0.2 mg PRN PRN IV RR < 8; Start 08/03/18 at 15:00 Hydromorphone HCl (Dilaudid SLITTER SERVICE AND SETTER) Q4PCA IV Last administered on 08/06/18 18:41; Admin Dose 6 MG; Start 08/03/18 at 15:00 Cefazolin Sodium 2 gm/Sodium Chloride 50 ml @ 100 mls/hr Q8H IVPB Last administered on 08/07/18 09:08; Admin Dose 100 MLS/HR; Start 08/03/18 at 18:00 Patient Own Medication 1 ea DAILY PO Last administered on 08/07/18 09:06; Admin Dose 1 EA; Start 08/04/18 at 17:30 Amlodipine Besylate (Norvasc) 5 mg DAILY PO Last administered on 08/07/18 09: 06; Admin Dose 5 MG; Start 08/04/18 at 17:30 YARITZA CARR Aug 07, 2018 10:37
[2018-08-07] MEDS: DOCUSATE SODIUM 100 MG CAP PO PRN ×2 (11:29→22:23)
[2018-08-07] MEDS: BISACODYL (EC) 5 MG TAB PO PRN (11:29)
--- NOTE | 2018-08-07 12:56 | PN ---
Date/Time of Note Date/Time of Note DATE: 08/07/18 TIME: 12:55 Assessment/Plan VTE Prophylaxis Risk score (from Nsg)>0 risk: 7 SCD applied (from Nsg): Yes Pharmacological prophylaxis: other Lines/Catheters IV Catheter Type (from Nrsg): Peripheral IV Urinary Cath still in place: No Assessment/Plan Assessment/Plan s/p open component separation with mesh doing well ok to go home when patient feels comfortable Result Diagram: 08/04/18 0428 08/05/18 0457 Subjective 24 Hr Interval Summary Free Text/Dictation patient doing well but is reticent about going home because he lives alone Exam/Review of Systems Exam Vitals Vital Signs Date Temp Pulse Resp B/P (MAP) Pulse Ox O2 O2 Flow FiO2 Time Delivery Rate 08/07/18 98.4 87 18 157/100 100 Room Air 07:49 (119) 08/06/18 08:23 08/04/18 2.0 20:10 Intake and Output 08/06/18 08/06/18 08/07/18 1515:00 23:00 07:00 IntakeIntake Total 490 ml 1350 ml 1450 ml OutputOutput Total 1200 ml 300 ml 1650 ml BalanceBalance -710 ml 1050 ml -200 ml Exam c/d/i Medications Medication Current Medications Oxycodone/ Acetaminophen (Percocet (5/ 325)) 1 tab Q6H PRN PO PAIN LEVEL 6-10; Start 08/03/18 at 10:30 Sodium Chloride 1,000 ml @ 100 mls/hr Q10H IV Last administered on 08/07/18at 06:26; Admin Dose 100 MLS/HR; Start 08/03/18 at 10:13 Hydralazine HCl (Apresoline) 10 mg Q4H PRN IV SBP>170 Last administered on 08/05/18at 20:14; Admin Dose 10 MG; Start 08/03/18 at 13:00 Ondansetron HCl (Zofran Inj) 4 mg Q6H PRN IV NAUSEA/VOMITING; Start 08/03/18 at 13:00 Morphine Sulfate (morphine) 2 mg Q4H PRN IV .SEVERE PAIN 7-10 Last administered on 08/03/18at 13:23; Admin Dose 2 MG; Start 08/03/18 at 13:00 Docusate Sodium (Colace) 100 mg Q12H PRN PO .CONSTIPATION Last administered on 08/07/18 11:29; Admin Dose 100 MG; Start 08/03/18 at 13:00 Bisacodyl (Dulcolax) 5 mg DAILY PRN PO .CONSTIPATION Last administered on 08/07/18 11:29; Admin Dose 5 MG; Start 08/03/18 at 13:00 Naloxone HCl (Narcan) 0.2 mg PRN PRN IV RR < 8; Start 08/03/18 at 15:00 Hydromorphone HCl (Dilaudid BUCKET PUSHER) Q4PCA IV Last administered on 08/06/18 18:41; Admin Dose 6 MG; Start 08/03/18 at 15:00 Cefazolin Sodium 2 gm/Sodium Chloride 50 ml @ 100 mls/hr Q8H IVPB Last administered on 08/07/18 09:08; Admin Dose 100 MLS/HR; Start 08/03/18 at 18:00 Patient Own Medication 1 ea DAILY PO Last administered on 08/07/18 09:06; Admin Dose 1 EA; Start 08/04/18 at 17:30 Amlodipine Besylate (Norvasc) 5 mg DAILY PO Last administered on 08/07/18 09:06; Admin Dose 5 MG; Start 08/04/18 at 17:30 Gibson BRANTLEY Aug 07, 2018 12:56
[2018-08-07] MEDS: HYDROmorphONE 0.2 MG/ML PCA IV SCH (14:48)
[2018-08-07 15:01] VITALS: BP 139/90; PULSE 94; RESP 18
[2018-08-07 19:15] VITALS: BP 159/96; PULSE 96; RESP 20
[2018-08-07] MEDS ORDERED: PROMETHAZINE/CODEINE 5ML CUP PO PRN (22:00)
[2018-08-08 02:05] VITALS: BP 141/98; PULSE 81; RESP 20
[2018-08-08] MEDS: CEFAZOLIN 2 GM in SOD CHLORIDE 0.9% 50 ML IVPB SCH ×3 (02:23→17:18)
[2018-08-08] MEDS: SOD CHLORIDE 0.9% 1,000 ML IV SCH ×2 (06:38→20:13)
[2018-08-08 07:55] VITALS: BP 163/104; PULSE 90; RESP 18
[2018-08-08] MEDS: TENOFOVIR PO SCH (09:49)
[2018-08-08] MEDS: RILPIVIRINE PO SCH (09:49)
[2018-08-08] MEDS: AMLODIPINE 5 MG TAB PO SCH (09:49)
[2018-08-08] MEDS: ODEFSEY PO SCH (09:49)
[2018-08-08] MEDS ORDERED: HYDROCODONE/APAP (5/325) TAB PO PRN (12:30)
--- NOTE | 2018-08-08 12:55 | PN ---
Date/Time of Note Date/Time of Note DATE: 08/08/18 TIME: 12:55 Assessment/Plan VTE Prophylaxis Risk score (from Ns)>0 risk: 3 SCD applied (from Ns): Yes Pharmacological prophylaxis: LMWH Lines/Catheters IV Catheter Type (from Nrsg): Peripheral IV Urinary Cath still in place: No Assessment/Plan Hospital Course -Abdominal distension/ apin -no bm/passing gas - stat KUB- FU -Incarcerated ventral hernia umbilical hernia and abdominal wall defect, status post open repair by Dr. Farah on 08/03/2018. -Continue IV fluids and postoperative antibiotic. -Continue morphine for pain and Zofran as needed for nausea. -Hypertension, start Norvasc, continue hydralazine as needed. -HIV, continue Odefsey. Result Diagram: 08/04/18 0428 08/05/18 0457 Subjective 24 Hr Interval Summary Free Text/Dictation Patient complains of postoperative pain and also having phlegm that is difficult to bring up. Exam/Review of Systems Exam Vitals Vital Signs Date Temp Pulse Resp B/P (MAP) Pulse Ox O2 O2 Flow FiO2 Time Delivery Rate 08/08/18 98.1 90 18 163/104 94 Room Air 07:55 (123) 08/06/18 21 08:23 08/04/18 2.0 20:10 Intake and Output 08/07/18 08/07/18 08/08/18 1515:00 23:00 07:00 IntakeIntake Total 350 ml 2030 ml 1050 ml OutputOutput Total 500 ml 1400 ml BalanceBalance 350 ml 1530 ml -350 ml Constitutional: well developed Head: normocephalic, atraumatic Neck: supple Respiratory: clear to auscultation Cardiovascular: regular rate and rhythm Gastrointestinal: soft, non-tender Extremities: normal pulses Medications Medication Current Medications Oxycodone/ Acetaminophen (Percocet (5/ 325)) 1 tab Q6H PRN PO PAIN LEVEL 6-10; Start 08/03/18 at 10:30 Sodium Chloride 1,000 ml @ 100 mls/hr Q10H IV Last administered on 08/08/18at 06:38; Admin Dose 100 MLS/HR; Start 08/03/18 at 10:13 Hydralazine HCl (Apresoline) 10 mg Q4H PRN IV SBP>170 Last administered on 08/05/18 20:14; Admin Dose 10 MG; Start 08/03/18 at 13:00 Ondansetron HCl (Zofran Inj) 4 mg Q6H PRN IV NAUSEA/VOMITING; Start 08/03/18 at 13:00 Morphine Sulfate (morphine) 2 mg Q4H PRN IV .SEVERE PAIN 7-10 Last administered on 08/03/18 13:23; Admin Dose 2 MG; Start 08/03/18 at 13:00 Docusate Sodium (Colace) 100 mg Q12H PRN PO .CONSTIPATION Last administered on 08/07/18 22:23; Admin Dose 100 MG; Start 08/03/18 at 13:00 Bisacodyl (Dulcolax) 5 mg DAILY PRN PO .CONSTIPATION Last administered on 08/07/18 11:29; Admin Dose 5 MG; Start 08/03/18 at 13:00 Naloxone HCl (Narcan) 0.2 mg PRN PRN IV RR < 8; Start 08/03/18 at 15:00 Cefazolin Sodium 2 gm/Sodium Chloride 50 ml @ 100 mls/hr Q8H IVPB Last administered on 08/08/18 09:50; Admin Dose 100 MLS/HR; Start 08/03/18 at 18:00 Patient Own Medication 1 ea DAILY PO Last administered on 08/08/18 09:49; Admin Dose 1 EA; Start 08/04/18 at 17:30 Amlodipine Besylate (Norvasc) 5 mg DAILY PO Last administered on 08/08/18 09:49; Admin Dose 5 MG; Start 08/04/18 at 17:30 Promethazine HCl/ Codeine (Phenergan/ Codeine) 10 ml Q6H PRN PO COUGH Last administered on 08/07/18 22:23; Admin Dose 10 ML; Start 08/07/18 at 22:00 Acetaminophen/ Hydrocodone Bitart ([place] (5/325)) 1 tab Q4H PRN PO MODERATE PA IN LEVEL 4-6; Start 08/08/18 at 12:30 Acetaminophen/ Hydrocodone Bitart ([place] (5/325)) 2 tab Q4H PRN PO MODERATE PAIN LEVEL 4-6; Start 08/08/18 at 12:30 ITZEL DONALD Y Aug 08, 2018 12:55
[2018-08-08 14:20] VITALS: BP 148/89; PULSE 88; RESP 18
--- NOTE | 2018-08-08 16:42 | PN ---
DATE: 08/08/2018 Postop day #6 status post laparotomy for hernia abdominal wall defect. Repair of the hernia, abdominal wall defect with component separation and implantation of the mesh. SUBJECTIVE: States that today he feels better. Has passed gas and today for the first time, has started a bowel movement. No nausea, no vomiting, tolerating diet. Walking around slowly. OBJECTIVE: GENERAL: Awake and alert. Sitting on a chair at the bedside. VITAL SIGNS: Temperature maximum today 99, heart rate 81 and 90, fluctuating. Respirations 18, blood pressure 2 occasions 141/98 at 2 a.m. and at 7 am 163/104, which shows high diastolic figures. The patient is on antihypertensive medication. HEART: Regular. LUNGS: Clear. ABDOMEN: There is some ecchymosis around the incision, but the abdomen appears protruded and distended. It is mildly tender. Bowel sound is 2+/4+. LABORATORY DATA: There is no hematology since and chemistry. There is a chemistry, which was done on the and it shows that the total bilirubin which was 0.6 on admission had increased to 1.7 and indirect bilirubin is 1.7, the cause of this is not clear, but sodium and potassium is normal. ASSESSMENT AND PLAN: The patient is status post abdominal wall defect operation with component separation and implantation of a mesh. The patient appears stable. Tolerated diet today. Has started having bowel movement, but there are 2 problems. One, the blood pressure is not under controlled yet. The second one is that the bilirubin, which was normal on admission, 2 days ago on the lab test has been abnormal, increased to 1.7 and since then has not had any other chemistry. Therefore, we are going to do a new chemistry tomorrow and CBC, CMP, PT and PTT and if everything is normal, then hopefully the patient can be discharged home tomorrow. Dictated By: CATE JOSE MD PS/NTS Conf#: [id number] DID#: [id number] CC: CARMEN BRANTLEY MD;*EndCC* MTDD
[2018-08-08] MEDS: HYDROCODONE/APAP (5/325) TAB PO PRN ×2 (17:19→21:35)
[2018-08-08] MEDS: OXYCODONE/ACETAMINOPHEN (5/325) TAB PO PRN (18:12)
[2018-08-08] MEDS: ALBUTEROL 0.083% (NEB) 2.5 MG/3 ML AMP HHN PRN (18:22)
[2018-08-08 20:28] VITALS: BP 150/88; PULSE 78; RESP 20
[2018-08-09 02:09] VITALS: BP 148/71; PULSE 77; RESP 17
[2018-08-09] MEDS: CEFAZOLIN 2 GM in SOD CHLORIDE 0.9% 50 ML IVPB SCH ×3 (02:59→17:30)
[2018-08-09] MEDS: SOD CHLORIDE 0.9% 1,000 ML IV SCH ×2 (06:13→16:13)
[2018-08-09 07:28] VITALS: BP 123/86; PULSE 88; RESP 18
[2018-08-09] MEDS: HYDROCODONE/APAP (5/325) TAB PO PRN ×3 (07:54→14:58)
[2018-08-09] MEDS: ODEFSEY PO SCH (07:55)
[2018-08-09] MEDS: TENOFOVIR PO SCH (07:55)
[2018-08-09] MEDS: AMLODIPINE 5 MG TAB PO SCH (07:55)
[2018-08-09] MEDS: RILPIVIRINE PO SCH (07:55)
[2018-08-09] MEDS: OXYCODONE/ACETAMINOPHEN (5/325) TAB PO PRN ×2 (08:44→17:30)
[2018-08-09] MEDS: ALBUTEROL 0.083% (NEB) 2.5 MG/3 ML AMP HHN PRN (09:30)
[2018-08-09] MEDS ORDERED: MAGNESIUM HYDROXIDE 30ML CUP PO ONE (12:00)
--- NOTE | 2018-08-09 12:43 | PN ---
Date/Time of Note Date/Time of Note DATE: 08/09/18 TIME: 12:42 Assessment/Plan VTE Prophylaxis Risk score (from Ns)>0 risk: 6 SCD applied (from Ns): Yes Pharmacological prophylaxis: LMWH Lines/Catheters IV Catheter Type (from Nrsg): Saline Lock Urinary Cath still in place: No Assessment/Plan Hospital Course -Abdominal distension/ apin -no bm/passing gas - stat KUB- FU -Incarcerated ventral hernia umbilical hernia and abdominal wall defect, status post open repair by Dr. Farah on 08/03/2018. -Continue IV fluids and postoperative antibiotic. -Continue morphine for pain and Zofran as needed for nausea. -Hypertension, start Norvasc, continue hydralazine as needed. -HIV, continue Odefsey. Result Diagram: 08/09/18 0456 08/09/18 0456 Results 24hrs Laboratory Tests Test 08/09/18 04:56 White Blood Count 4.8 # Red Blood Count 3.76 L Hemoglobin 12.0 L Hematocrit 35.4 L Mean Corpuscular Volume 94.1 Mean Corpuscular Hemoglobin 31.9 Mean Corpuscular Hemoglobin Concent 33.9 Red Cell Distribution Width 12.0 Platelet Count 156 # Mean Platelet Volume 9.8 Immature Granulocytes % 1.000 H Neutrophils % 59.1 Lymphocytes % 21.7 Monocytes % 14.3 H Eosinophils % 3.1 Basophils % 0.8 Nucleated Red Blood Cells % 0.0 Immature Granulocytes # 0.050 H Neutrophils # 2.9 Lymphocytes # 1.1 Monocytes # 0.7 Eosinophils # 0.2 Basophils # 0.0 Nucleated Red Blood Cells # 0.0 Prothrombin Time 14.0 Prothrombin Time Ratio 1.1 INR International Normalized Ratio 1.07 Activated Partial Thromboplast Time 27.5 Sodium Level 141 Potassium Level 4.2 Chloride Level 101 Carbon Dioxide Level 31 Anion Gap 9 Blood Urea Nitrogen 14 Creatinine 0.68 Est Glomerular Filtrat Rate mL/min > 60 Glucose Level 108 Calcium Level 9.3 Total Bilirubin 0.8 Direct Bilirubin 0.00 Indirect Bilirubin 0.8 Aspartate Amino Transf (AST/SGOT) 75 H Alanine Aminotransferase (ALT/SGPT) 73 H Alkaline Phosphatase 106 Total Protein 6.5 Albumin 3.9 Globulin 2.60 Albumin/Globulin Ratio 1.50 Subjective 24 Hr Interval Summary Free Text/Dictation Patient still has a fair amount of pain in abdomen, doesn't feel ready to go home today Exam/Review of Systems Exam Vitals Vital Signs Date Temp Pulse Resp B/P (MAP) Pulse Ox O2 O2 Flow FiO2 Time Delivery Rate 08/09/18 86 18 96 21 09:42 08/09/18 97.7 123/86 Room Air 07:28 (98) Intake and Output 08/08/18 08/08/18 08/09/18 1515:00 23:00 07:00 IntakeIntake Total 410 ml 2510 ml 710 ml OutputOutput Total 600 ml 1200 ml 2200 ml BalanceBalance -190 ml 1310 ml -1490 ml Constitutional: well developed Head: normocephalic, atraumatic Neck: supple Respiratory: clear to auscultation Cardiovascular: regular rate and rhythm Gastrointestinal: soft, non-tender Extremities: normal pulses Results Results 24hrs Laboratory Tests Test 08/09/18 04:56 White Blood Count 4.8 # Red Blood Count 3.76 L Hemoglobin 12.0 L Hematocrit 35.4 L Mean Corpuscular Volume 94.1 Mean Corpuscular Hemoglobin 31.9 Mean Corpuscular Hemoglobin Concent 33.9 Red Cell Distribution Width 12.0 Platelet Count 156 # Mean Platelet Volume 9.8 Immature Granulocytes % 1.000 H Neutrophils % 59.1 Lymphocytes % 21.7 Monocytes % 14.3 H Eosinophils % 3.1 Basophils % 0.8 Nucleated Red Blood Cells % 0.0 Immature Granulocytes # 0.050 H Neutrophils # 2.9 Lymphocytes # 1.1 Monocytes # 0.7 Eosinophils # 0.2 Basophils # 0.0 Nucleated Red Blood Cells # 0.0 Prothrombin Time 14.0 Prothrombin Time Ratio 1.1 INR International Normalized Ratio 1.07 Activated Partial Thromboplast Time 27.5 Sodium Level 141 Potassium Level 4.2 Chloride Level 101 Carbon Dioxide Level 31 Anion Gap 9 Blood Urea Nitrogen 14 Creatinine 0.68 Est Glomerular Filtrat Rate mL/min > 60 Glucose Level 108 Calcium Level 9.3 Total Bilirubin 0.8 Direct Bilirubin 0.00 Indirect Bilirubin 0.8 Aspartate Amino Transf (AST/SGOT) 75 H Alanine Aminotransferase (ALT/SGPT) 73 H Alkaline Phosphatase 106 Total Protein 6.5 Albumin 3.9 Globulin 2.60 Albumin/Globulin Ratio 1.50 Medications Medication Current Medications Oxycodone/ Acetaminophen (Percocet (5/ 325)) 1 tab Q6H PRN PO PAIN LEVEL 6-10 Last administered on 08/09/18 08:44; Admin Dose 1 TAB; Start 08/03/18 at 10:30 Sodium Chloride 1,000 ml @ 100 mls/hr Q10H IV Last administered on 08/08/18 06:38; Admin Dose 100 MLS/HR; Start 08/03/18 at 10:13 Hydralazine HCl (Apresoline) 10 mg Q4H PRN IV SBP>170 Last administered on 08/05/18 20:14; Admin Dose 10 MG; Start 08/03/18 at 13:00 Ondansetron HCl (Zofran Inj) 4 mg Q6H PRN IV NAUSEA/VOMITING; Start 08/03/18 at 13:00 Morphine Sulfate (morphine) 2 mg Q4H PRN IV .SEVERE PAIN 7-10 Last administered on 08/03/18 13:23; Admin Dose 2 MG; Start 08/03/18 at 13:00 Docusate Sodium (Colace) 100 mg Q12H PRN PO .CONSTIPATION Last administered on 08/07/18 22:23; Admin Dose 100 MG; Start 08/03/18 at 13:00 Bisacodyl (Dulcolax) 5 mg DAILY PRN PO .CONSTIPATION Last administered on 08/07/18 11:29; Admin Dose 5 MG; Start 08/03/18 at 13:00 Naloxone HCl (Narcan) 0.2 mg PRN PRN IV RR < 8; Start 08/03/18 at 15:00 Cefazolin Sodium 2 gm/Sodium Chloride 50 ml @ 100 mls/hr Q8H IVPB Last administered on 08/09/18 09:27; Admin Dose 100 MLS/HR; Start 08/03/18 at 18:00 Patient Own Medication 1 ea DAILY PO Last administered on 08/09/18 07:55; Admin Dose 1 EA; Start 08/04/18 at 17:30 Amlodipine Besylate (Norvasc) 5 mg DAILY PO Last administered on 08/09/18 07:55; Admin Dose 5 MG; Start 08/04/18 at 17:30 Promethazine HCl/ Codeine (Phenergan/ Codeine) 10 ml Q6H PRN PO COUGH Last administered on 08/07/18 22:23; Admin Dose 10 ML; Start 08/07/18 at 22:00 Acetaminophen/ Hydrocodone Bitart ([place] (5/325)) 1 tab Q4H PRN PO MODERATE PAIN LEVEL 4-6; Start 08/08/18 at 12:30 Acetaminophen/ Hydrocodone Bitart ([place] (5/325)) 2 tab Q4H PRN PO MODERATE PAIN LEVEL 4-6 Last administered on 08/09/18at 12:03; Admin Dose 2 TAB; Start 08/08/18 at 12:30 Albuterol (Proventil 0.083% (Neb)) 1.25 mg Q2H RESP THERAPY PRN HHN phlegm Last administered on 08/09/18at 09:30; Admin Dose 1.25 MG; Start 08/08/18 at 13:00 ITZEL DONALD Aug 09, 2018 12:43
--- NOTE | 2018-08-09 13:19 | PN ---
DATE: 08/09/2018 Postop day #6. Status postop laparotomy, repair of the ventral hernia utilizing component separation technique and implantation of the mesh. SUBJECTIVE: Feels much better. Has had a bowel movement . Has been walking around. Has tolerated diet. Required [place] and Percocet for pain control. LABORATORY DATA: Today, bilirubin which was up 3 days ago has normalized to 0.8 total and indirect bilirubin. AST is slightly elevated at 75. ALT is slightly elevated at 73. Coagulation is normal. Hematology: WBC 4800 with 59% segmented , hemoglobin 12, hematocrit 35.4. PHYSICAL EXAMINATION: HEART: Regular. LUNGS: Clear. ABDOMEN: Soft (KUB was done last night because of distention of the abdomen which shows normal gas pattern, slight constipation). Wound clean. EXTREMITIES: Lower extremity: No pitting edema. No calf tenderness. ASSESSMENT AND PLAN: The patient is post-laparotomy and repair of the hernia ventral with component separation and implantation of mesh. The patient is quite stable. He can be discharged home with prescription for [place]. Also, the patient was instructed that he can add 1 or 2 Advil to the dose of [place] as required p.r.n. The patient was advised not to lift heavy objects more than 5 to 10 pounds for at least 3 to 6 months. The patient is to call Dr. Ren Farah's office and make appointment for followup. The patient has been on regular diet. Advised to have low salt diet at home. The patient has been having high blood pressure and the medical service is treating and controlling the blood pressure. In conclusion from surgical point of view, the patient can be discharged. The medical service will make a final decision to discharge the patient if blood pressure and other parameters are controlled. Dictated By: CATE JOSE MD PS/NTS Conf#: [id number] DID#: [id number] CC: CARMEN FARAH MD; LYNDA CAMPOVERDE MD;*EndCC* MTDD
[2018-08-09 14:20] VITALS: BP 135/87; PULSE 78; RESP 18
[2018-08-09] MEDS: DOCUSATE SODIUM 100 MG CAP PO PRN (18:20)
[2018-08-09] MEDS: BISACODYL (EC) 5 MG TAB PO PRN (18:20)
[2018-08-09 20:08] VITALS: BP 125/89; PULSE 84; RESP 18
[2018-08-10] MEDS: CEFAZOLIN 2 GM in SOD CHLORIDE 0.9% 50 ML IVPB SCH (01:26)
[2018-08-10] MEDS: SOD CHLORIDE 0.9% 1,000 ML IV SCH (01:37)
[2018-08-10 01:42] VITALS: BP 148/91; PULSE 77; RESP 18
[2018-08-10 07:32] VITALS: BP 131/72; PULSE 82; RESP 19
[2018-08-10] MEDS: RILPIVIRINE PO SCH (08:11)
[2018-08-10] MEDS: TENOFOVIR PO SCH (08:11)
[2018-08-10] MEDS: ODEFSEY PO SCH (08:11)
[2018-08-10] MEDS: AMLODIPINE 5 MG TAB PO SCH (08:12)
[2018-08-10] MEDS: OXYCODONE/ACETAMINOPHEN (5/325) TAB PO PRN ×2 (08:12→14:05)
[2018-08-10] MEDS: DOCUSATE SODIUM 100 MG CAP PO PRN (08:12)
--- NOTE | 2018-08-10 08:34 | PN ---
Date/Time of Note Date/Time of Note DATE: 08/10/18 TIME: 08:33 Assessment/Plan VTE Prophylaxis Risk score (from Nsg)>0 risk: 6 SCD applied (from Nsg): Yes Pharmacological prophylaxis: other Lines/Catheters IV Catheter Type (from Nrsg): Saline Lock Urinary Cath still in place: No Assessment/Plan Assessment/Plan s/p component separation dc home today and f/u in 2 weeks Result Diagram: 08/09/18 0456 08/09/18 0456 Subjective 24 Hr Interval Summary Free Text/Dictation s/p component separation doing well ok to go home Exam/Review of Systems Exam Vitals Vital Signs Date Temp Pulse Resp B/P (MAP) Pulse Ox O2 O2 Flow FiO2 Time Delivery Rate 08/10/18 98.2 82 19 131/72 98 07:32 (91) 08/09/18 Room Air 14:20 08/09/18 09:42 Intake and Output 08/09/18 08/09/18 08/10/18 1515:00 23:00 07:00 IntakeIntake Total 650 ml 550 ml 50 ml BalanceBalance 650 ml 550 ml 50 ml Exam c/d/i Medications Medication Current Medications Oxycodone/ Acetaminophen (Percocet (5/ 325)) 1 tab Q6H PRN PO PAIN LEVEL 1-5 Last administered on 08/09/18 08:44; Admin Dose 1 TAB; Start 08/03/18 at 10:30 Hydralazine HCl (Apresoline) 10 mg Q4H PRN IV SBP>170 Last administered on 08/05/18at 20:14; Admin Dose 10 MG; Start 08/03/18 at 13:00 Ondansetron HCl (Zofran Inj) 4 mg Q6H PRN IV NAUSEA/VOMITING; Start 08/03/18 at 13:00 Morphine Sulfate (morphine) 2 mg Q4H PRN IV .SEVERE PAIN 7-10 Last administered on 08/03/18at 13:23; Admin Dose 2 MG; Start 08/03/18 at 13:00 Docusate Sodium (Colace) 100 mg Q12H PRN PO .CONSTIPATION Last administered on 08/10/18at 08:12; Admin Dose 100 MG; Start 08/03/18 at 13:00 Bisacodyl (Dulcolax) 5 mg DAILY PRN PO .CONSTIPATION Last administered on 08/09/18 18:20; Admin Dose 5 MG; Start 08/03/18 at 13:00 Naloxone HCl (Narcan) 0.2 mg PRN PRN IV RR < 8; Start 08/03/18 at 15:00 Patient Own Medication 1 ea DAILY PO Last administered on 08/10/18 08:11; Admin Dose 1 EA; Start 08/04/18 at 17:30 Amlodipine Besylate (Norvasc) 5 mg DAILY PO Last administered on 08/10/18 08:12; Admin Dose 5 MG; Start 08/04/18 at 17:30 Promethazine HCl/ Codeine (Phenergan/ Codeine) 10 ml Q6H PRN PO COUGH Last administered on 08/07/18 22:23; Admin Dose 10 ML; Start 08/07/18 at 22:00 Acetaminophen/ Hydrocodone Bitart ([place] (5/325)) 1 tab Q4H PRN PO MODERATE PAIN LEVEL 4-6 Last administered on 08/10/18 04:01; Admin Dose 1 TAB; Start 08/08/18 at 12:30 Acetaminophen/ Hydrocodone Bitart ([place] (5/325)) 2 tab Q4H PRN PO MODERATE PAIN LEVEL 4-6 Last administered on 08/09/18 14:58; Admin Dose 2 TAB; Start 08/08/18 at 12:30 Albuterol (Proventil 0.083% (Neb)) 1.25 mg Q2H RESP THERAPY PRN HHN phlegm Last administered on 08/09/18 09:30; Admin Dose 1.25 MG; Start 08/08/18 at 13:00 Oxycodone/ Acetaminophen (Percocet (5/ 325)) 2 tab Q6 PRN PO PAIN LEVEL 6-10 Last administered on 08/10/18 08:12; Admin Dose 2 TAB; Start 08/09/18 at 13:00 Gibson BRANTLEY Aug 10, 2018 08:34
[2018-08-10] MEDS ORDERED: HYDR-3601 PO (15:02)
[2018-08-10 15:26] VITALS: BP 142/62; PULSE 78; RESP 18
--- NOTE | 2018-08-11 23:45 | DS ---
Date/Time of Note Date/Time of Note DATE: 08/11/18 TIME: 23:43 Discharge Summary Admission/Discharge Info Admit Date/Time Aug 03, 2018 at 06:23 Discharge Date/Time Aug 10, 2018 at 18:50 Patient Condition: Stable Hx of Present Illness The patient is 58-year-old male who was evaluated by Dr. Farah in general surgery consultation for very large abdominal wall defect and complex ventral and umbilical hernias. Patient has HIV takes Odefsey daily patient stated that his viral load is undetectable. Patient requested surgery for his hernia and was brought to the hospital today and underwent open hernia repair by Dr. Farah. Po stoperative patient had an episode of high blood pressure, was given hydralazine with improvement in blood pressure. Patient denies any history of hypertension, however, he stated sometimes first reading of his blood pressure could be slightly elevated due to being anxious. Patient's complaints of abdominal pain and patient will be admitted for further evaluation and management. Hospital Course -Incarcerated ventral hernia umbilical hernia and abdominal wall defect, status post open repair by Dr. Farah on 08/03/2018. Continue IV fluids and postoperative antibiotic. Continue morphine for pain and Zofran as needed for nausea. -Hypertension, Norvasc, continue hydralazine as needed. -HIV, continue Odefsey. Plan of care discussed with Dr. Velasquez. Home Meds Active Scripts Hydrocodone Bit-Acetaminophen (Hydrocodone Bit-APAP) 5-325MG Tablet, 1 TAB PO Q4H PRN for MODERATE PAIN LEVEL 4-6, #30 TAB Prov:BETTIE RUVALCABA 08/10/18 Reported Medications Emtricitab/Rilpiviri/Tenof Ala (Odefsey Tablet) 1 Each Tablet, 1 EACH PO, TAB 08/03/18 Follow-up Plan f/up with Dr Farah in 2 weeks. Primary Care Provider [facility] Time spent on discharge: > 30 minutes BETITE RUVALCABA Aug 11, 2018 23:45
== END 2018-08-10 18:50 | disposition home or self-care (01) | DRG 355 ==
LOC: REC 06:23 → EDSTATUS 10:30 → MS1 12:00
PROVIDERS: ADMIT Surgery; ATTEND Surgery
PROC: 0WUF0JZ Supplement Abdominal Wall with Synthetic Substitute, Open Approach (ICD-10-PCS; 2018-08-03)
PROC: 0WUF0JZ Supplement Abdominal Wall with Synthetic Substitute, Open Approach (ICD-10-PCS; principal; 2018-08-03 09:00)
DX: K43.6 Other and unspecified ventral hernia with obstruction, without gangrene (principal); I10 Essential (primary) hypertension; K42.0 Umbilical hernia with obstruction, without gangrene
CPT/HCPCS: 74018; 80053; 85025; 85610; 85730; 94640; 94664; J0360; J0690; J1170; J1885; J2175; J2250; J2270; J2405; J2710; J2765; J2795; J3010; J7030